=== PATIENT | male | born 1955 | race Caucasian/White ===

== ENCOUNTER 2020-09-01 10:32 | Outpatient (REF) | payer MEDICARE, OTHER, SELFPAY ==
--- NOTE | 2020-09-01 16:45 | MHC.AU.AHA ---
Adult Audiological Evaluation Date of Visit: 09/01/20 Reason for Appointment: Audiological evaluation to monitor the status of Mr. Valenzuela's hearing loss. 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 He currently uses a 2008 Oticon BTE hearing aid in the left ear only. He states that the other hearing aid has since broken. He is interested in pursuing updated amplification. Previous Hearing Test Results: Previous testing in 2008 indicated a moderate sloping to profound sensorineural hearing loss bilaterally. Ear History: Recent Ear Pain: Both Ears Recent Ear Infections: Left Ear Bothersome Tinnitus/Ringing/Noises in Ears: Both Ears History of occupational noise exposure?: Yes: 40 years Medical History: Medical History: Unremarkable Medical History Hearing Instrument History- Left Ear: Paper Machine Backtender: Oticon Model: Tego BTE Serial Number: [id number] (previously for right side, pt notes that he switched them when the other aid stopped working) Battery Size: 13 Warranty: Loss and Damage Warranty: Dispensed By: [facility] Date of Fittin03/11/2008 Otoscopy: Right Ear: Unremarkable Left Ear: Unremarkable Tympanometry: Tympanometry performed due to: To assess integrity of the middle ear system Right Ear: Normal Middle Ear System (Type A) Left Ear: Normal Middle Ear System (Type A) Hearing Evaluation: Transducer(s) Used: Insert Earphones, Bone Conduction Method: Conventional Audiometry Stimuli Used: Pure Tones Right Ear: Description of Hearing: Moderately severe sloping to profound sensorineural hearing loss from 250-8000 Hz. Left Ear: Description of Hearing: Moderately severe sloping to profound sensorineural hearing loss from 250-8000 Hz. Speech Recognition Threshold (SRT): Method Used: Monitored Live Voice Stimuli Used: Spondee Words Right Ear: 75 dBHL Left Ear: 75 dBHL Word Discrimination: Method: Monitored Live Voice Word Lists Used: NU-6 Right Ear: 24% at 95 dBHL Left Ear: 32% at 95 dBHL Comparison: Compared to the most recent evaluation: Thresholds have decreased bilaterally. Compared to most recent evaluation: In the right ear, hearing is 20 dBHL worse at 150 Hz and 10 dBHL worse at 500 Hz compared to testing from 2008. In the left ear, hearing is 10 dBHL worse at 250 and 1000 Hz compared to 2008. Recommendations: Audiological re-evaluation in one year. Trial with amplification is recommended. Medical clearance from a physician is required before fitting. Discussed hearing aid options with Mr. Valenzuela. His current insurance does no provide hearing aid coverage. He will contact his insurance to see if he is eligible for a plan that does cover hearing aids and will return to further discuss options. Briefly discussed cochlear implants as well, though patient states he is not interested in pursuing cochlear implants at this time. Diagnosis: Primary Diagnosis: H90.3 Bilateral Sensorineural Hearing Loss Secondary Diagnosis: H93.13 Tinnitus, Bilateral Services Performed: Comprehensive Audiological Evaluation (CPT 15420) Tympanometry (CPT 77333) Signature: Provider: Ngozi Tijerina, CCC-A
== END 2020-09-01 10:33 | disposition home or self-care (01) ==
LOC: HO.SH 10:32
PROVIDERS: PCP Internal Medicine; Visit Provider Physician Assistant
DX: H90.3 Sensorineural hearing loss, bilateral (principal); H93.13 Tinnitus, bilateral
CPT/HCPCS: 92557; 92567

== ENCOUNTER 2020-10-17 09:07 | Outpatient (REF) | payer SELFPAY ==
--- NOTE | 2020-10-17 10:16 | MHC.AU.HAS ---
Hearing Aid Evaluation Date of Visit: 10/17/20 Historical Information: Description of Hearing: Moderately-severe to profound sensorineural hearing loss bilaterally Current personal amplification information, if applicable: Previously using a left-sided Oticon Tego BTE, obtaiend in 2007 Summary: Patient arrived as a walk-in, reporting that his hearing aid has been lost. He was interested in seeing if he could talk to someone about getting a new hearing aid. There was an opening in the schedule, and we were able to accommodate him. He was last seen at our clinic for a hearing test on 09/01/2020. Patient initially wanted a CIC. He would like to start with one for his left ear, and if he likes it, he may do one for the right ear later on. He would like it to have Bluetooth, and he would like a high-level product. Discussed that most CICs, and most custom hearing aids, are not in his fitting range. Discussed that BTEs would be more appropriate. Patient reports that he understands that most of his hearing loss is outside the fitting range for a custom, but he strongly feels that he would like to give it a try. Discussed that the hearing aids have a 30 day trial period, so if he does not feel a custom hearing aid is powerful enough, we can switch to a power BTE in the first 30 days. Showed patient an example of an ITC, and he was okay with trying it, as long as they don't have to make it too big. A Phonak Virto M90-312 UP has the largest fitting range for a custom product, and still has Bluetooth. We can instruct Phonak to make it as small as possible. A impression was taken of the left ear without incident. Patient reports that he thinks he has an ear infection in his right ear, and has been using OTC pain relief ear drops. Otoscopy performed on the right ear revealed a red, swollen ear canal. Strongly advised patient to contact his PCP, as he likely needs prescription medication. Hearing Aid Prescription: Based on the individual?s shared listening needs, communication environments, dexterity, desire for connectivity, and personal preferences, the following prescription for amplification has been made: Left ear: Left ear prescription to be same as Right Hearing Aid above: Certified Midwife: Zadego Model: Virto M90-312 UP Battery Size: 312 Action Taken/Action Needed: Earmold Impressions Taken Medical Clearance to be requested from PCP/ENT Patient was did not have his payment method with him today. He reports that he will stop by Tuesday to pay the $350 deposit. Once we receive the deposit, we will place the order (impression is in Hold drawer for now). We will schedule a hearing aid fitting when all materials arrive. It is strongly recommended that the patient consult his PCP, or go to an urgent care, about his red, swollen right ear canal. Primary Diagnosis: H90.3 Bilateral Sensorineural Hearing Loss Signature: Provider: Ngozi Gallegos, CCC-A
== END 2020-10-17 09:08 | disposition home or self-care (01) ==
LOC: HO.HAP 09:07
PROVIDERS: Visit Provider Internal Medicine
DX: Z13.89 Encounter for screening for other disorder (principal)

== ENCOUNTER 2020-10-27 08:08 | Outpatient (REF) | payer SELFPAY ==
--- NOTE | 2020-10-27 09:23 | MHC.AU.HAS ---
Hearing Aid Evaluation Date of Visit: 10/27/20 Historical Information: Description of Hearing: Moderately-severe to profound sensorineural hearing loss bilaterally Current personal amplification information, if applicable: Previously using a left-sided Oticon Tego BTE, obtained in 2007 (lost) Summary: Patient was last seen on 10/17/2020 for hearing aid evaluation after he had lost his hearing aid. The hearing aid was from 2007 and was out of loss and damage warranty. Hearing aid options were discussed; however, communication was limited to lip reading. See report from 10/17/2020 for full details of the discussion. Patient was going to stop in the next Tuesday to pay his deposit, but elected to schedule another visit to discuss more hearing aid options. Today, patient reports he would still prefer a CIC. He also wanted to see if he could demo a CIC or ITC in-office. Placed a Featurespaceero B90-SP (#[id number]) demo with size 2 slim tube and medium power dome on him. Patient was pleased with the sound, reporting it sounded much clearer than his previous Oticon Tego. This allowed for us to have a more clear discussion of why a CIC would not be appropriate for his hearing loss, and why the custom products cannot be demo-ed in office. Patient would like to stay with the ITC, as selected previously. Discussed that if it is not enough for his needs, we can still try a BTE under the 30-day trial period. We will request that [employer] sends the impression back in case we need to switch to a BTE during the trial period. He reports that if he likes the hearing aid, he will likely get one for the right ear afterwards. Patient was allowed to borrow the Phonak Bolero B90-SP demo to get him by until the new hearing aid arrives. Hearing Aid Prescription: Based on the individual?s shared listening needs, communication environments, dexterity, desire for connectivity, and personal preferences, the following prescription for amplification has been made: Left ear: Gang Head Saw Operator: PhonLittle Borrowed Dress Model: Virto M90-312 UP Battery Size: 312 Color: [place] Action Taken/Action Needed: The hearing aid will be ordered using the mold taken at the 10/17/20 visit. Patient paid $1000 as deposit. Primary Diagnosis: H90.3 Bilateral Sensorineural Hearing Loss Signature: Provider: Ngozi Gallegos, CCC-A
== END 2020-10-27 08:09 | disposition home or self-care (01) ==
LOC: HO.HAP 08:08
PROVIDERS: Visit Provider Internal Medicine
DX: H90.3 Sensorineural hearing loss, bilateral (principal); Z46.1 Encounter for fitting and adjustment of hearing aid
CPT/HCPCS: 92591; V5255

== ENCOUNTER 2020-11-21 08:24 | Outpatient (REF) | payer SELFPAY | END 2020-11-21 08:25 | disposition home or self-care (01) | LOC: HO.HAP 08:24 | PROVIDERS: Visit Provider Internal Medicine | DX: Z13.89 Encounter for screening for other disorder (principal) ==

== ENCOUNTER 2020-12-12 15:45 | Outpatient (REF) | payer SELFPAY ==
--- NOTE | 2020-12-12 16:57 | MHC.AU.HAS ---
Hearing Aid Evaluation Date of Visit: 12/12/20 Historical Information: Description of Hearing: Moderately severe sloping to profound sensorineural hearing loss, corner audiogram configuration Current personal amplification information, if applicable: Virto M90-312 Summary: Mr. Valenzuela is not happy with the new ITE style hearing aid. He would like to try a SAMANTHA style hearing aid instead. Order email to AMVONET for aid and cShell using SACHIN on file. Hearing Aid Prescription: Based on the individual?s shared listening needs, communication environments, dexterity, desire for connectivity, and personal preferences, the following prescription for amplification has been made: Left ear: Russian Language Instructor: AMVONET Model: Audeo P90-13T Battery Size: 13 Color: P1- Sand beige Staff Weapons Officer: Size 2 UP Type of Mold: cShell Plan of Care: Hearing Instrument Fitting to be scheduled when materials arrive. Kept the current aid for now, will return for credit once new aid is fit. Primary Diagnosis: H90.3 Bilateral Sensorineural Hearing Loss Signature: Provider: Ngozi Tijerina, CCC-A
== END 2020-12-12 15:46 | disposition home or self-care (01) ==
LOC: HO.HAP 15:45
PROVIDERS: Visit Provider Internal Medicine
DX: Z13.89 Encounter for screening for other disorder (principal)

== ENCOUNTER 2020-12-17 15:28 | Outpatient (REF) | payer SELFPAY | END 2020-12-17 15:29 | disposition home or self-care (01) | LOC: HO.HAP 15:28 | PROVIDERS: Visit Provider Internal Medicine | DX: Z13.89 Encounter for screening for other disorder (principal) ==

== ENCOUNTER 2021-01-09 15:01 | Outpatient (REF) | payer SELFPAY | END 2021-01-09 15:02 | disposition home or self-care (01) | LOC: HO.HAP 15:01 | PROVIDERS: Visit Provider Internal Medicine | DX: Z13.89 Encounter for screening for other disorder (principal) ==

== ENCOUNTER 2021-03-26 17:36 | Emergency (ER) | payer MEDICARE, OTHER, SELFPAY ==
--- NOTE | ~2021-03-26 | CT_ITS ---
EXAMINATION: CT ABDOMEN AND PELVIS WITHOUT CONTRAST CLINICAL INFORMATION: Diffuse abdominal pain. History of renal calculi. COMPARISON: None TECHNIQUE: Multidetector volumetric imaging was performed from the superior aspect of the liver through the pubic symphysis. Sagittal and coronal reformatted images were obtained on the technologist's workstation. This CT examination was performed using dose optimization techniques as appropriate, variously including the following: *Automated exposure control *Adjustment of mA and/or kV according to patient size (this includes techniques or standardized protocols for targeted exams where dose is matched to indication/reason for exam; i.e. extremities or head) *Use of iterative reconstruction technique DLP: 772 mGy-cm FINDINGS: LUNG BASES: Examination of the lung bases is limited by motion. There are subtle cystic lucencies suggesting some degree of centrilobular emphysema. In the right lower lobe there is a 9 mm pulmonary nodule (119:4). No focal consolidation or pleural effusion. Coronary calcifications. Moderate size hiatal hernia. LIVER, GALLBLADDER, AND BILIARY TREE: There is decreased attenuation of the liver parenchyma suggesting hepatic steatosis. Otherwise, the liver is normal in size and shape without focal abnormalities. The gallbladder is within normal limits. There is no biliary ductal dilatation. PANCREAS: No focal lesions. The pancreatic duct is nondilated. No surrounding inflammatory changes. SPLEEN: Unremarkable. ADRENAL GLANDS: Unremarkable. KIDNEYS AND URETERS: There is a 3.7 cm exophytic cyst off the upper pole of the left kidney. There are multiple bilateral parapelvic cysts. No hydronephrosis or hydroureter. No renal calculi. No significant perinephric fat stranding. BLADDER: Underdistended limiting its evaluation. No significant perivesical fat stranding. GASTROINTESTINAL TRACT: Moderate size hiatal hernia as above. The stomach and the small bowel are nondistended. There is some stool in the terminal ileum and distal ileum suggesting slow transit. No pericolic inflammatory changes. No bowel obstruction. ABDOMINAL WALL: Small bilateral fat-containing inguinal hernias. LYMPH NODES: No lymphadenopathy by size criteria. VASCULAR: Scattered atherosclerotic disease of the abdominal aorta which is of normal diameter. PELVIC VISCERA: Enlarged prostate with coarse calcifications and also calcifications of the bilateral vas deferens. OSSEOUS STRUCTURES: No acute or aggressive osseous abnormalities. Multilevel thoracal lumbar spondylosis. CT/CT abdomen pelvis wo con IMPRESSION: No evidence of nephrolithiasis nor hydroureteronephrosis. Hepatic steatosis. Diverticulosis without significant associated pericolic inflammatory changes to suggest diverticulitis. Assessment of wall thickening is limited due to under distention of the distal colon. No bowel obstruction. Moderate hiatal hernia. Mild centrilobular emphysema with a 9 mm right lower lobe pulmonary nodule of uncertain etiology. Consider further evaluation with a nonemergent diagnostic chest CT to assess for the presence of additional nodules.
[2021-03-26 18:08] VITALS: BP 108/82; PULSE 77; RESP 20; TEMP 36.4; O2SAT 98; BMI 29.5
--- NOTE | 2021-03-26 19:11 | ED_ITS ---
HPI - Abdominal Pain General Chief Complaint: Abdominal Pain Stated Complaint: Abd Pain Time Seen by Provider: 03/26/21 17:40 History of Present Illness HPI narrative: Patient 65-year-old male presents today with having abdominal pain. The pain is over the lower abdomen. There is no fever no chills. No nausea no vomiting. Patient claims that he had not had a great bowel movement. He did have a small bowel movement today. He needs to strain for it. Patient denies any difficulty urinating. Patient is from home. No cough no congestion or upper respiratory symptoms. He is vaccinated for COVID. Patient denies any radiation of pain. No history of kidney stone. Positive history of having gastric ulcer which he needed surgery for. No other abdominal surgery. No chest pain. No shortness of breath. No diaphoresis. Patient is from home. Pain in the low abdomen is dull. Patient passing lots of gas per Related Data Previous Rx's Medication Instructions Recorded polyethylene glycol 3350 17 gram 17 g PO DAILY #14 ea 03/26/21 oral powder packet (Miralax) Allergies Allergy/AdvReac Type Severity Reaction Status Date / Time aspirin [ASPIRIN] Allergy Severe ANAPHYLAXIS Unverified 02/28/20 15:23 Review of Systems Review of Systems Positive abdominal pain No nausea No vomiting No diarrhea Positive flatus No chest pain No shortness of breath Yes all other systems are reviewed and are negative Physical Exam Vital Signs: Vital Signs: Last Vital Signs Temp 97.7 F 03/26/21 19:33 Pulse 67 03/26/21 19:33 Resp 16 03/26/21 19:33 BP 139/87 03/26/21 19:33 Pulse Ox 99 03/26/21 19:33 Body Mass Index 29.5 Appearance: Alert. Oriented X3. No acute distress. Eyes: Pupils equal, round and reactive to light. ENT: Pharynx normal. Neck: Normal inspection. Neck supple. No lymph nodes noted. No crepitus CVS: Normal heart rate and rhythm. Pulses normal. Normal S1 and S2 Respiratory: No respiratory distress. Breath sounds normal. No Wheezing. No rales Abdomen: Soft and nontender. No rigidity. No distention. good BS x4 Skin: Skin warm and dry. Normal skin color. Normal skin turgor. Extremities: No lower extremity edema. Neurovascular intact to all extremities. No Lacerations. No Rash Neuro: Oriented X 3. No motor deficit. No sensory deficit. Moving all extermities. No slurred speech MDM - Abdominal Pain MDM Narrative Medical decision making narrative: CT scan of the abdomen negative for any acute evidence of abscess, perforation, obstruction. Patient's white count is normal. Electrolytes unremarkable. Urine showed no signs of infection. Postvoid patient had less than 100 cc. No evidence of retention. Will discharge patient home. Currently in stable condition. Medical Records Attestation: I reviewed the patient's medical records. Lab Data Attestation: I reviewed the patient's lab results. Result diagrams: 03/26/21 19:15 03/26/21 19:15 Labs: Lab Results 03/26/21 03/26/21 03/26/21 Range/Units 19:15 19:15 19:16 WBC 5.4 (4.8-10.8) X10*3/uL RBC 4.66 (4.60-5.80) X10*6/uL Hgb 14.6 (14.0-18.0) g/dl Hct 43.2 (42-52) % MCV 92.7 (80-98) fL MCH 31.3 (27.0-33.0) pg MCHC 33.8 (31.0-36.0) g/dl RDW 12.8 (11.0-16.0) % Plt Count 176 (160-400) X10*3/uL MPV 10.3 (9.4-12.4) fL Immature Gran % (Auto) 0.2 (0.0-0.4) % Neut % (Auto) 53.9 (45-73) % Lymph % (Auto) 31.8 (20-40) % [place] % (Auto) 11.4 H (2-11) % Eos % (Auto) 2.0 (0-4) % Baso % (Auto) 0.7 (0-2) % Lymph # (Auto) 1.7 (1.2-4.9) X10*3/uL [place] # (Auto) 0.6 (0.1-1.2) X10*3/uL Eos # (Auto) 0.1 (0.0-0.4) X10*3/uL Baso # (Auto) 0.0 (0.0-0.2) X10*3/uL Abs Immat Gran (auto) 0.01 (0.00-0.03) X10*3/uL Absolute Neuts (auto) 2.9 (2.0-8.3) X10*3/uL Absolute Nucleated RBC 0.000 (0.0-0.012) X10*3/uL Nucleated RBC % (auto) 0.0 (0.0-0.2) /100WBC Sodium 141 (135-145) mmol/L Potassium 4.7 (3.3-5.1) mmol/L Chloride 106 (96-108) mmol/L Carbon Dioxide 30 H (22-29) mmol/L Anion Gap 10 L (12-20) BUN 16 (9-16) mg/dL Creatinine 1.02 (0.5-1.4) mg/dL Estim Creat Clear Calc 85.4 Estimated GFR > 60 Random Glucose 101 (60-115) mg/dL Calcium 9.5 (8.4-10.2) mg/dL Total Bilirubin 0.4 (0.0-1.0) mg/dL AST 35 (5-37) U/L ALT 45 H (0-40) U/L Alkaline Phosphatase 53 (39-117) U/L Total Protein 7.4 (6.5-8.0) g/dL Albumin 4.6 (3.5-5.0) g/dL Lipase 47 (8-78) U/L Urine Color YELLOW Urine Appearance HAZY Urine pH 6.0 (5.0-8.0) Ur Specific [place] >= 1.030 H (1.005-1.025) Urine Protein NEG (NEG-TRACE) MG/DL Urine Glucose (UA) NEG (NEG) MG/DL Urine Ketones NEG (NEG) MG/DL Urine Blood NEG (NEG) Urine Nitrite NEG (NEG) Ur Leukocyte Esterase NEG (NEG) Discharge Plan Discharge Clinical Impression: Constipation Patient Disposition: Home, Self-Care Instructions: Constipation (ED) Additional Instructions: A lung nodule was found on your CT scan. Please closely follow-up with your doctor on an outpatient basis. A copy of the CT report was given to you. Tati choi follow-up. Prescriptions: New polyethylene glycol 3350 [Miralax] 17 gram powder in packet 17 g PO DAILY Qty: 14 RF: 0 Referrals: Diandra Aguilar MD [Primary Care Provider] - 2 days [facility] Past Medical History Attestation statement: The following information was validated with the patient. Social History Social History Advance Directives: No Advance Directives Information Provided: No
[2021-03-26 19:29] LABS: MANUAL DIFF FLAG NO
[2021-03-26 19:30] LABS: Appearance Urine HAZY; Color Urine YELLOW; Glucose Urine UA NEG (NEG); Leukocyte Esterase Urine NEG (NEG); Nitrite Urine NEG (NEG); Specific Gravity - Urine >= 1.030 (1.005-1.025); Urine Blood NEG (NEG); Urine Ketones NEG (NEG); Urine Protein NEG (NEG-TRACE)
[2021-03-26 19:30] LABS: Basophils Percent Auto 0.7 % (0-2); Eosinophils Absolute Auto 0.1 X10*3/uL (0.0-0.4); Hematocrit 43.2 % (42-52); Hemoglobin 14.6 g/dl (14.0-18.0); Imm Gran Abs Auto 0.01 X10*3/uL (0.00-0.03); Imm Gran Pct Auto 0.2 % (0.0-0.4); Lymphocytes Absolute Auto 1.7 X10*3/uL (1.2-4.9); Lymphocytes Percent Auto 31.8 % (20-40); Mean Corpuscular HGB Conc 33.8 g/dl (31.0-36.0); Mean Corpuscular Hemoglobin 31.3 pg (27.0-33.0); Mean Corpuscular Volume 92.7 fL (80-98); Mean Platelet Volume 10.3 fL (9.4-12.4); Monocytes Absolute Auto 0.6 X10*3/uL (0.1-1.2); Monocytes Percent Auto 11.4 % (2-11); Neutrophils Absolute Auto 2.9 X10*3/uL (2.0-8.3); Neutrophils Percent Auto 53.9 % (45-73); Platelet Count 176 X10*3/uL (160-400); Red Blood Count 4.66 X10*6/uL (4.60-5.80); Red Cell Distribution Width 12.8 % (11.0-16.0); White Blood Count 5.4 X10*3/uL (4.8-10.8)
[2021-03-26 19:33] VITALS: BP 139/87; PULSE 67; RESP 16; TEMP 36.5; O2SAT 99
[2021-03-26 19:54] LABS: Alanine Aminotransferase 45 U/L (0-40); Albumin Level 4.6 g/dL (3.5-5.0); Alkaline Phosphatase 53 U/L (39-117); Anion Gap 10 (12-20); Aspartate Amino Transferase 35 U/L (5-37); Bilirubin Total 0.4 mg/dL (0.0-1.0); Blood Urea Nitrogen 16 mg/dL (9-16); Calcium 9.5 mg/dL (8.4-10.2); Carbon Dioxide 30 mmol/L (22-29); Chloride 106 mmol/L (96-108); Creatinine Clr Calc Pharmacy 85.4; Estimated Glomerular Filt Rate > 60; Glucose Random 101 mg/dL (60-115); Lipase 47 U/L (8-78); Potassium 4.7 mmol/L (3.3-5.1); Sodium 141 mmol/L (135-145); Total Protein 7.4 g/dL (6.5-8.0)
[2021-03-26 20:10] VITALS: BP 136/82; PULSE 74; RESP 16; TEMP 36.8; O2SAT 99
== END 2021-03-26 20:12 | disposition home or self-care (01) ==
PROVIDERS: Emergency Provider Emergency Medicine Emergency Medical Services; PCP Internal Medicine
DX: K59.00 Constipation, unspecified (principal)
CPT/HCPCS: 36415; 74176; 80053; 81003; 83690; 85025; 99284

== ENCOUNTER 2023-04-06 10:06 | Outpatient (REF) | payer MEDICARE, MEDICAID, SELFPAY | END 2023-04-06 10:07 | disposition home or self-care (01) | LOC: HO.HAP 10:06 | PROVIDERS: Visit Provider Internal Medicine | DX: Z13.89 Encounter for screening for other disorder (principal) ==

== ENCOUNTER 2023-04-12 13:26 | Outpatient (REF) | payer MEDICARE, MEDICAID, SELFPAY | END 2023-04-12 13:27 | disposition home or self-care (01) | LOC: HO.HAP 13:26 | PROVIDERS: Visit Provider Internal Medicine | DX: Z13.89 Encounter for screening for other disorder (principal) ==

== ENCOUNTER 2023-05-27 13:13 | Outpatient (REF) | payer MEDICARE, MEDICAID, SELFPAY | END 2023-05-27 13:14 | disposition home or self-care (01) | LOC: HO.HAP 13:13 | PROVIDERS: Visit Provider Internal Medicine | DX: Z13.89 Encounter for screening for other disorder (principal) ==

== ENCOUNTER 2023-06-08 12:33 | Outpatient (RCR) | payer MEDICARE, MEDICAID, SELFPAY | END 2023-06-08 17:00 | disposition home or self-care (01) | LOC: HO.WCC 12:33 | PROVIDERS: PCP Internal Medicine; Visit Provider Surgery | DX: Z09 Encounter for follow-up examination after completed treatment for conditions other than malignant neoplasm (principal); R97.20 Elevated prostate specific antigen [PSA]; Z87.891 Personal history of nicotine dependence | CPT/HCPCS: 99212 ==

== ENCOUNTER 2023-12-12 08:41 | Outpatient (AMB) | payer MEDICARE, MEDICAID, SELFPAY ==
--- NOTE | 2023-12-12 09:19 | MHC.OFFWIV ---
Intake Vital Signs 12/12/23 09:20 Height 5 ft 11 in Weight 216 lb 4 oz BMI 30.2 BP 122/70 Blood Pressure Location Rt brachial Position Sitting Pulse 72 Pulse Source Pulse Oximeter Temp 98.2 F Temp Source Oral Pulse Oximetry (%) 98 Intake Visit Reasons: PSYCHIATRIC ORDERLY ?Hernia Intake Note: pt is here for possible hernia, located in abd Patient Tobacco Use Status: Never used Tobacco Allergies aspirin [ASPIRIN] Allergy (Severe, Verified 12/12/23 09:24) ANAPHYLAXIS Do you need a note to return to daycare/school/sports/work: No HPI HPI Comments History of Present Illness Details Patient is a 68-year-old male complaining of a ?hernia . He states he moved a month ago and that is when his issue started, he felt it got worse when he was riding his bike last weekend. He states it is constantly painful, like a throbbing pain. He states he can feel the lump. [facility] Social History Patient Tobacco Use Status: Never used Tobacco Review of Systems Const All systems reviewed & are unremarkable except as noted in HPI and below Physical Exam Vital Signs: Last Vital Signs Temp 98.2 F 12/12/23 09:20 Pulse 72 12/12/23 09:20 BP 122/70 12/12/23 09:20 Pulse Ox 98 12/12/23 09:20 BMI result Body Mass Index 30.2 Const General: cooperative, healthy appearing, comfortable, no acute distress and well developed Orientation/consciousness: patient oriented x3 Limitations: no limitations HEENT Head: Yes normal to inspection Eyes General: appearance normal, both eyes and all related structures Neck Neck: Yes normal visual inspection and Yes full ROM Resp Effort & Inspection: normal respiratory effort and able to speak in complete sentences GI Inspection: Yes normal to inspection Palpation (GI): Soft to palpation, nontender and Hernia present (Left inguinal, nonreducible) Skin General skin exam: no rashes or lesions noted Neuro General: patient oriented x3 Extrem General: Yes normal to inspection Assessment & Plan Assessment & Plan (1) Inguinal hernia, left: Code(s): K40.90 - Unilateral inguinal hernia, without obstruction or gangrene, not specified as recurrent Plan: Unable to reduce hernia, this combined with the patient experiencing pain, I recommended he go to the emergency department for a CT scan and thorough evaluation as he may need emergency surgery. I explained this thoroughly to the patient, he understands and agrees with plan. Plan see above Medications: Discontinued polyethylene glycol 3350 (Miralax) Discontinued Reason: Patient Completed Course 17 grams PO DAILY 14 ea 0RF Coding Level of Care Code New Pt Level 4 (53022) Diagnoses Inguinal hernia, left K40.90
[2023-12-12 09:20] VITALS: BP 122/70; PULSE 72; TEMP 36.8; O2SAT 98; BMI 30.2
== END 2023-12-12 10:15 | disposition home or self-care (01) ==
PROVIDERS: PCP Internal Medicine; Visit Provider Physician Assistant
DX: K40.90 Unilateral inguinal hernia, without obstruction or gangrene, not specified as recurrent (principal)
CPT/HCPCS: 99204

== ENCOUNTER 2023-12-21 10:18 | Outpatient (REF) | payer SELFPAY | END 2023-12-21 10:19 | disposition home or self-care (01) | LOC: HO.HAP 10:18 | PROVIDERS: Visit Provider Internal Medicine | DX: Z46.1 Encounter for fitting and adjustment of hearing aid (principal); H90.3 Sensorineural hearing loss, bilateral | CPT/HCPCS: V5267 ==

== ENCOUNTER 2024-01-24 15:29 | Outpatient (REF) | payer MEDICARE, MEDICAID, SELFPAY ==
--- NOTE | 2024-01-25 08:16 | MHC.AU.HA3 ---
Hearing Instrument Follow-Up- Binaural Date of Visit: 01/24/24 Left Ear: Make, Model, Color, Serial Number: Silvia Ryan [id number] SN: [id number] Color: Sand Beige Reducer Repair Warranty: 03/23/2024 Reducer Loss and Damage Warranty: 03/23/2024 [facility] Service Plan: Battery Size: 13 Manager Baby/Slim Tube: Size 2 UP Earmold/Dome/CShell/SlimTip: cShell SN: [id number] Warranty: 05/03/2021 Type of Wax Guard: Cerustop Dispensed By: [facility] Date of Fittin01/09/2021 Follow-Up Summary: Patient came as walk-in, per Kathe stated his hearing aid was not working and needed to be given a loaner before he left our office, preferably two loaners, did not want to schedule appointment or come back another time. I was available at that moment so looked at his hearing aid, cleaned buildup off prongs of jointer machine operator, replaced wax guard, listening check positive. Patient reported improvement. Service covered under service plan. They inquired about frequency of [facility] hearing aid eligibility, let them know every 5 years. Once I reviewed his chart further I noticed he purchased this hearing aid as a private pay patient and is still under warranty, I am unsure if he now has [facility] or will be getting it in the future but it sounds as though he is interested in new hearing aids. Recommendations: Recommendations: Hearing instrument follow-up or maintenance as needed. Diagnosis Code(s): Primary Diagnosis: H90.3 Bilateral Sensorineural Hearing Loss Signature: Provider: Ngozi Lr, [facility]
== END 2024-01-24 15:30 | disposition home or self-care (01) ==
LOC: HO.HAP 15:29
PROVIDERS: Visit Provider Internal Medicine
DX: Z13.89 Encounter for screening for other disorder (principal)